=== PATIENT | female | born 1945 | race Caucasian/White ===

== ENCOUNTER → 2020-08-11 | Outpatient (CLI) | payer MEDICARE ==
[2020-08-11 15:30] LABS: HEMOGLOBIN 14.5 gm/dl (12.3-15.3); RED BLOOD COUNT 4.33 M/UL (4.00-5.10); WHITE BLOOD COUNT 7.1 K/UL (4.5-11.0)
[2020-08-11 15:53] LABS: BUN/CREATININE RATIO 22 (0-10)
[2020-08-12 16:11] LABS: LYME IGG/IGM AB <0.91 ISR (0.00-0.90)
== END ==
LOC: LAB 13:52
PROVIDERS: Family Medicine
DX: I10 Essential (primary) hypertension (principal); E53.8 Deficiency of other specified B group vitamins; T14.8XXA Other injury of unspecified body region, initial encounter; W57.XXXA Bitten or stung by nonvenomous insect and other nonvenomous arthropods, initial encounter
CPT/HCPCS: 80053; 80061; 82607; 85027; 86618; 86757

== ENCOUNTER → 2020-09-09 | Outpatient (CLI) | payer MEDICARE | LOC: RAD 14:19 | DX: I10 Essential (primary) hypertension (principal); I48.0 Paroxysmal atrial fibrillation | CPT/HCPCS: 71046; 72110 ==

== ENCOUNTER → 2020-10-14 | Outpatient (CLI) | payer MEDICARE | LOC: MAMO 09-15 08:30 | DX: Z12.31 Encounter for screening mammogram for malignant neoplasm of breast (principal) | CPT/HCPCS: 77063; 77067 ==

== ENCOUNTER → 2020-12-15 | Outpatient (CLI) | payer MEDICARE | LOC: EXRD 14:45 | DX: M54.9 Dorsalgia, unspecified (principal); S43.101A Unspecified dislocation of right acromioclavicular joint, initial encounter | CPT/HCPCS: 72070; 73010 ==

== ENCOUNTER → 2021-04-27 | Outpatient (CLI) | payer MEDICARE | LOC: EXRD 12:39 | DX: M25.561 Pain in right knee (principal) | CPT/HCPCS: 73564 ==

== ENCOUNTER → 2021-11-08 | Emergency (ER) | payer MEDICARE ==
[~2021-11-08] MED LIST: ZANAFLEX2 MG PO
== END | disposition home or self-care (01) ==
LOC: ER1 13:41
DX: S43.422A Sprain of left rotator cuff capsule, initial encounter (principal); I48.91 Unspecified atrial fibrillation; Z79.01 Long term (current) use of anticoagulants; W18.30XA Fall on same level, unspecified, initial encounter
CPT/HCPCS: 73030; 73060; 99283

== ENCOUNTER → 2022-02-06 | Outpatient (CLI) | payer MEDICARE | LOC: EXRD 11:51 | DX: M79.671 Pain in right foot (principal) | CPT/HCPCS: 73630 ==